=== PATIENT | male | born 1990 | race Caucasian/White ===

== ENCOUNTER 2022-07-19 22:16 | Emergency (ER) | payer OTHER ==
[~2022-07-19] VITALS: Ht 180.3 cm; Wt 68.0 kg
[2022-07-19 22:31] VITALS: BP 128/95
[2022-07-20] MEDS ORDERED: TETANUS, DIPHTHERIA, PERTUSSIS VAC/PF 0.5ML (>10YR OLD) IM ONE (01:00)
[2022-07-20] MEDS ORDERED: LIDOCAINE HCL 1% 20ML VIAL (Pyxis) INJ INFIL ONE (01:00)
[2022-07-20] MEDS ORDERED: BACITRACIN ZINC OINT UDPKT TOP ONE (01:15)
== END 2022-07-20 01:35 | disposition home or self-care (01) ==
LOC: ER 22:16
DX: S61.102A Unspecified open wound of left thumb with damage to nail, initial encounter (principal); W26.8XXA Contact with other sharp object(s), not elsewhere classified, initial encounter; Y93.89 Activity, other specified; Y92.89 Other specified places as the place of occurrence of the external cause; Y99.8 Other external cause status
CPT/HCPCS: 90471; 90715; 99283; Z7610